=== PATIENT | female | born 1980 | race American Indian/Alaskan Native ===

== ENCOUNTER 2017-11-05 10:09 | Emergency (ER) | payer MEDICAID, OTHER ==
[2017-11-05 10:10] VITALS: BMI 31.6
[2017-11-05 10:25] VITALS: RESP 20; TEMP 98.3
--- NOTE | 2017-11-05 11:29 | RAD ---
PROCEDURE: Cervical Spine Radiographs. HISTORY: Pain. No history of recent/ related trauma provided one week duration right side greater than left. COMPARISON: None. FINDINGS: BONES: Reversal of the anatomic lordosis with kyphosis . No fracture. Dens Intact. DISC SPACES: Normal. SOFT TISSUES: Normal. No prevertebral soft tissue swelling. OTHER FINDINGS: None. IMPRESSION: No significant or acute findings to account for/ related to the clinical presentation.
--- NOTE | 2017-11-05 11:39 | C.PDOC ---
History Of Present Illness 37 year old female presents to the ED for evaluation of right-sided neck pain which began 1 week ago. She states her pain is aching and worsens with movement. She suspects her pain is caused by sleeping on a new pillow. Patient has been taking Advil with minimal relief. She states the pain has started to radiate into her right shoulder for the past 2 days and presents to the ED for further evaluation. Patient denies fever, chills, headache, neck stiffness, extremity numbness/weakness. Time Seen by Provider: 11/05/17 11:04 Chief Complaint (Nursing): Upper Extremity Problem/Injury History Per: Patient History/Exam Limitations: no limitations Onset/Duration Of Symptoms: Other (1 week ) Current Symptoms Are (Timing): Still Present Previous Symptoms: Neck Pain (right ) Associated Symptoms: denies: New Weakness, New Numbness Additional History Per: Patient Past Medical History Reviewed: Historical Data, Nursing Documentation, Vital Signs Vital Signs: Last Vital Signs Temp 98.3 F 11/05/17 12:13 Pulse 89 11/05/17 12:13 Resp 20 11/05/17 12:13 BP 131/77 11/05/17 12:13 Pulse Ox 100 11/05/17 14:07 - Medical History PMH: No Chronic Diseases Surgical History: No Surg Hx - [facility] Procedures BILAT TUBAL DESTRUCT NEC (06/18/15) LOW CERVICAL (06/18/15) REMOVE CERVICAL CERCLAGE (06/18/15) Family History: States: Unknown Family Hx - Social History Hx Alcohol Use: Yes Hx Substance Use: No Review Of Systems Constitutional: Negative for: Fever, Chills Musculoskeletal: Positive for: Neck Pain (right-sided), Shoulder Pain (right) Neurological: Negative for: Weakness, Numbness, Headache Physical Exam - Physical Exam Appears: Non-toxic, No Acute Distress Skin: Normal Color, Warm, Dry Head: Atraumatic, Normacephalic, No Tenderness, No Swelling Eye(s): bilateral: Normal Inspection, EOMI Oral Mucosa: Moist Neck: Paracervical Tenderness (right>left), Supple, Other (pain with movement of neck) Chest: Symmetrical, No Deformity, No Tenderness Cardiovascular: Rhythm Regular Respiratory: Normal Breath Sounds, No Rales, No Rhonchi, No Wheezing Back: Normal Inspection, No Vertebral Tenderness, Muscle Spasm (palpable, to right trapezius muscle ), No Paraspinal Tenderness Extremity: Bilateral: Atraumatic, Normal Color And Temperature, Normal ROM Neurological/Psych: Oriented x3, Normal Speech Gait: Steady ED Course And Treatment O2 Sat by Pulse Oximetry: 100 (on RA ) Pulse Ox Interpretation: Normal - Other Rad Cervical Spine XR X-Ray: Interpreted by Me, Viewed By Me, Read By Radiologist Interpretation: PROCEDURE: Cervical Spine Radiographs. HISTORY: Pain. No history of recent/ related trauma provided one week duration right side greater than left. COMPARISON: None. FINDINGS: BONES: Reversal of the anatomic lordosis with kyphosis . No fracture. Dens Intact. DISC SPACES: Normal. SOFT TISSUES: Normal. No prevertebral soft tissue swelling. OTHER FINDINGS: None. IMPRESSION: No significant or acute findings to account for/ related to the clinical presentation. Medical Decision Making Medical Decision Making: Patient with right sided neck pain for one week, radiates down the arm. Exam shows reproducible muscle tenderness and pain with ipsilateral flexion. Valium PO was given. Xray ordered and reviewed showing no acute fracture or abnormality. Patient reevaluated and reports feeling better. Recommend heat to area and analgesics. Rx given. Disposition Counseled Patient/Family Regarding: Diagnosis, Need For Followup, Rx Given - Disposition Referrals: [facility] [Outside] [facility] [Outside] [facility] [Outside] Disposition: HOME/ ROUTINE Disposition Time: 11:39 Condition: STABLE Additional Instructions: Your xray was normal Take pain medicine as needed and muscle relaxant 1-3 times per day Apply heat to area Follow up with your doctor or clinic Prescriptions: Methocarbamol [Robaxin] 750 mg PO Q8 PRN #21 tab PRN Reason: Muscle Spasm Naproxen [Naprosyn] 1 tab PO BID PRN #25 tab PRN Reason: Pain Instructions: Cervical Strain (GEN) Forms: [facility] (Upper Sorbian) - POA Present On Arrival: None - Clinical Impression Clinical Impression: Muscle spasms of neck - PA / [employer] / Resident Statement MD/DO has reviewed & agrees with the documentation as recorded. - Scribe Statement The provider has reviewed the documentation as recorded by the Scribe (Juju Oleary) All medical record entries made by the Scribe were at my direction and personally dictated by me. I have reviewed the chart and agree that the record accurately reflects my personal performance of the history, physical exam, medical decision making, and the department course for this patient. I have also personally directed, reviewed, and agree with the discharge instructions and disposition.
[2017-11-05 12:16] VITALS: BP 131/77; PULSE 89
[2017-11-05 13:58] VITALS: O2SAT 100
== END 2017-11-05 12:16 | disposition home or self-care (01) ==
LOC: C.ER 10:09
DX: M62.838 Other muscle spasm (principal)

== ENCOUNTER 2018-07-26 10:52 | Emergency (ER) | payer OTHER ==
[2018-07-26 10:53] VITALS: BMI 31.6
[2018-07-26 10:58] VITALS: BP 131/86; PULSE 81; TEMP 99.1; O2SAT 99
--- NOTE | 2018-07-26 11:35 | C.PDOC ---
History Of Present Illness 37 yo female c/o left sided sore throat the started this morning when she woke up. The pain radiates to the left ear. She took Motrin 800 mg at 9am. She ate steak and eggs for breakfast. Denies fever, cough, difficulty breathing or swallowing, neck pain , headache, recent illness, or sick contacts. (+) smoker. Time Seen by Provider: 07/26/18 11:26 Chief Complaint (Nursing): ENT Problem History Per: Patient History/Exam Limitations: None Onset/Duration Of Symptoms: Hrs Current Symptoms Are (Timing): Still Present Quality (Mouth/Throat): Tenderness Past Medical History Vital Signs: Last Vital Signs Temp 99.1 F 07/26/18 10:56 Pulse 81 07/26/18 10:56 Resp 16 07/26/18 10:56 BP 131/86 07/26/18 10:56 Pulse Ox 99 07/26/18 10:56 - [facility] Procedures BILAT TUBAL DESTRUCT NEC (06/18/15) LOW CERVICAL (06/18/15) REMOVE CERVICAL CERCLAGE (06/18/15) Family History: States: Unknown Family Hx - Social History Hx Alcohol Use: Yes Hx Substance Use: No - Immunization History Hx Tetanus Toxoid Vaccination: No Hx Influenza Vaccination: No Hx Pneumococcal Vaccination: No Review Of Systems Except As Marked, All Systems Reviewed And Found Negative. ENT: Positive for: Throat Pain Physical Exam - Physical Exam Appears: Well, Non-toxic, No Acute Distress Skin: Normal Color, Warm, Dry Head: Atraumatic, Normacephalic Eye(s): bilateral: Normal Inspection, EOMI Ear(s): Left: TM Erythema (mild erythema), Right: Normal Nose: Normal Oral Mucosa: Moist Throat: Erythema, Exudate ((+) exudates to the left), No Drooling, Other Neck: Normal, Normal ROM, Supple Lymphatic: Adenopathy ((+) submandibular ) Chest: Symmetrical Cardiovascular: Rhythm Regular Respiratory: Normal Breath Sounds Back: Normal Inspection Extremity: Normal ROM Neurological/Psych: Oriented x3, Normal Speech ED Course And Treatment O2 Sat by Pulse Oximetry: 99 Progress Note: Instructed symptomatic treatment, return precautions and follo wup with her PMD in 1-2 days. Disposition - Disposition Disposition: HOME/ ROUTINE Disposition Time: 11:33 Condition: STABLE Additional Instructions: Gargle with warm salt water. Drink plenty of fluids. Follow up with your doctor in 1-2 days. Return to the ER if symptoms persist or worsen. Prescriptions: Amoxicillin 875 mg PO BID #20 tablet Ibuprofen [Motrin] 600 mg PO Q6 PRN #20 tab PRN Reason: Pain, Mild (1-3) Instructions: Sore Throat, Adult (DC) Forms: [facility] (Yakut), Work Excuse - Clinical Impression Clinical Impression: Pharyngitis
[2018-07-26 11:40] VITALS: RESP 18
== END 2018-07-26 11:49 | disposition home or self-care (01) ==
LOC: C.ER 10:52
DX: J02.9 Acute pharyngitis, unspecified (principal); F17.210 Nicotine dependence, cigarettes, uncomplicated

== ENCOUNTER 2018-11-02 06:35 | Day surgery (SDC) | payer OTHER ==
[2018-10-25 12:39] VITALS: BMI 28.0
[2018-11-02] MEDS ORDERED: cefOXitin IV 2 gm in Dextrose 2 GM/50 ML BAG IVPB ONE (07:35)
[2018-11-02] MEDS ORDERED: Midazolam 2 MG/2 ML VIAL ONE (07:35)
[2018-11-02] MEDS ORDERED: Propofol 10 mg/ml Inj (20 ML) ONE (07:36)
[2018-11-02] MEDS ORDERED: HYDROmorphone 0.5 mg/0.5 ml ISec IVP PRN (08:00)
[2018-11-02 10:10] VITALS: BP 106/54; PULSE 75; RESP 15; TEMP 97.5; O2SAT 99
--- NOTE | 2018-11-02 18:26 | OP ---
PROCEDURE DATE: 11/02/2018 PREOPERATIVE DIAGNOSES: Fibroid uterus, menorrhagia. POSTOPERATIVE DIAGNOSES: Fibroid uterus, menorrhagia. PROCEDURES: Hysteroscopy, hysteroscopic myomectomy, dilation and curettage of the uterus. SURGEON: Katelynn Nguyen MD FINDINGS: A 1 cm anterior submucosal myoma. The remainder of the endometrial cavity is normal. ANESTHESIA: General. ESTIMATED BLOOD LOSS: 1 mL. COMPLICATIONS: Nil. INDICATION FOR PROCEDURE: After the risks, benefits, and alternatives of the planned procedures including but not limited to infection, hemorrhage, deep vein thrombosis, atelectasis, pneumonia, pulmonary embolism, damage to the bladder, damage to the ureter, renal insufficiency, renal failure, wound infection, wound dehiscence, incisional hernia, keloid formation, damage to large and small intestines, damage to inferior vena cava and aorta requiring extensive repair, anesthesia complications, electrolyte imbalance, possibility of , fluid overload, cerebral edema, embolism, and other complications that were discussed, but are not listed above, have been explained to the patient and all her questions answered. Informed consent was obtained. DESCRIPTION OF PROCEDURE: The patient was taken to the operating room in a stable condition. Under a suitable level of general analgesia, she was prepped and draped in a sterile fashion after having been placed in a dorsal lithotomy position. Bladder was emptied by straight catheterization. Examination under anesthesia revealed a normal-sized uterus, anteverted with no adnexal masses. A weighted speculum was inserted into the vagina. The anterior lip of the cervix was grasped using a single-tooth tenaculum, endocervical curettage was performed and scant tissue was obtained. Uterus was sounded to 8 cm. Cervix was dilated with #16 Hanks dilator. The hysteroscope was inserted into the uterus and using a MyoSure device a 1 cm anterior submucosal myoma was resected up to the level of the endometrium. The hysteroscope was then removed and endometrial curettage was performed and scant tissue was obtained. There was a bleeding point rather on the right tenaculum site which was ligated using 2-0 chromic. Instruments were then removed from the vagina. There was good hemostasis. The patient was then transferred to the recovery room in a stable condition. Pad, needle and instrument counts were correct x2. There were no complications. Katelynn Nguyen MD [facility] # [id number]
== END 2018-11-02 10:10 | disposition home or self-care (01) ==
LOC: C.SDS 06:35
PROVIDERS: ATTEND Obstetrics & Gynecology Reproductive Endocrinology
DX: D25.9 Leiomyoma of uterus, unspecified (principal); N92.0 Excessive and frequent menstruation with regular cycle
CPT/HCPCS: 58558; 88305; C2615; J0694; J2001; J2250; J2704; J3010